=== PATIENT | female | born 1945 | race Caucasian/White ===

== ENCOUNTER → 2024-07-15 12:48 | Outpatient (REF) | payer MEDICARE, OTHER, SELFPAY | LOC: HWCARD 12:48 | PROVIDERS: ATTENDING PHYSICIAN Pain Medicine Interventional Pain Medicine; FAMILY PHYSICIAN Family Medicine | DX: Z01.818 Encounter for other preprocedural examination (principal) | CPT/HCPCS: 93005 ==